=== PATIENT | male | born 2000 | race African-American/Black ===

== ENCOUNTER 2021-08-17 16:29 | Emergency (ER) | payer OTHER, BC, SELFPAY ==
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
[2021-08-17 16:45] VITALS: BP 155/69; PULSE 91; RESP 14; TEMP 36.7; O2SAT 100
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
== END 2021-08-17 17:55 | disposition home or self-care (01) ==
PROVIDERS: Emergency Provider Nurse Practitioner Family
DX: S39.012A Strain of muscle, fascia and tendon of lower back, initial encounter (principal); V49.40XA Driver injured in collision with unspecified motor vehicles in traffic accident, initial encounter
CPT/HCPCS: 72100; 99283